=== PATIENT | female | born 1955 | race Caucasian/White ===

== ENCOUNTER 2018-10-25 23:00 | Emergency (ER) | payer MEDICARE ==
[2018-10-25 23:47] LABS: BASOPHILS % (AUTO) 0.5 %; EOSINOPHILS # (AUTO) 0.1 10^3/uL (0.0-0.7); EOSINOPHILS % (AUTO) 0.9 %; HGB - HEMOGLOBIN 12.9 g/dL (12.0-16.0); LYMPHOCYTES # (AUTO) 3.3 10^3/uL (1.5-3.5); LYMPHOCYTES % (AUTO) 38.6 %; MEAN CORPUSCULAR HEMOGLOBIN 31.2 pg (27.0-31.0); MEAN CORPUSCULAR HGB CONC 33.8 g/dL (32.0-36.0); MEAN CORPUSCULAR VOLUME 92.3 fL (81.0-99.0); MEAN PLATELET VOLUME 9.6 fL (7.9-10.8); MONOCYTES # (AUTO) 0.6 10^3/uL (0.0-1.0); NEUTROPHILS # (AUTO) 4.5 10^3/uL (1.5-6.6); NEUTROPHILS % (AUTO) 52.8 %; PLT - PLATELET COUNT 270 10^3/uL (130-450); RED BLOOD COUNT 4.14 10^6/uL (4.20-5.40); RED CELL DISTRIBUTION WIDTH 13.3 % (12.0-15.0); WHITE BLOOD COUNT 8.5 x10^3/uL (4.8-10.8)
[2018-10-26 00:02] LABS: ALBUMIN 4.3 g/dL (3.2-5.5); ALBUMIN/GLOBULIN RATIO 1.3 (1.0-2.2); BILIRUBIN,TOTAL 0.4 mg/dL (0.2-1.0); CALCIUM 9.5 mg/dL (8.5-10.3); CREATININE 0.9 mg/dL (0.4-1.0); TOTAL PROTEIN 7.6 g/dL (6.7-8.2)
--- NOTE | 2018-10-26 00:20 | XRAY Report ---
Reason: chest pain, cough Procedure Date: 10/25/2018 Accession Number: [id number] / [id number] Procedure: XR - Chest 1 View X-Ray CPT Code: 31861 FULL RESULT: EXAM: CHEST RADIOGRAPHY EXAM DATE: 10/25/2018 11:47 PM. CLINICAL HISTORY: Chest pain, cough. COMPARISON: None. TECHNIQUE: 1 view. FINDINGS: Lungs/Pleura: Linear atelectasis or scarring in the left midlung. No focal infiltrate, effusion, or pneumothorax. Mediastinum: Within exam limitations, the cardiomediastinal contour is normal. Other: None. IMPRESSION: Linear atelectasis or scarring in the left midlung. RADIA
--- NOTE | 2018-10-26 01:04 | ED Physician Documentation ---
PD HPI CHEST PAIN - Stated complaint Stated Complaint: CP - Chief complaint Chief Complaint: Cardiac - History obtained from History obtained from: Patient, Family - History of Present Illness Timing - onset: How many months ago (2) Timing - onset during: Light activity Timing - duration: Months (2) Timing - details: Still present, Waxing and waning Quality: Sharp, Pain Location: Left chest Radiation: Abdominal Improved by: Rest Worsened by: Inspiration, Movement, Palpation, Position Associated symptoms: No: Shortness of air, Diaphoresis, Nausea, Vomiting, Feeling faint / dizzy Similar symptoms before: Diagnosis (pneumonia) Recently seen: Not recently seen - Additional information Additional information: 63-year-old female with a history of pseudotumor cerebrii and pneumonia has developed pain in her left chest that is worse with movement or bending over or palpation. She indicates that she is had this pain previously in May of this year when she had pneumonia and she is wondering if she has her pneumonia back again. The pain has been bothering her for about 2 months and she has recently moved from [place] to [facility]. She indicates that the moving truck did most of the work but she and her have been moving things in storage quite a bit. She is feeling a bit fatigued she does not have a cough or fever and she is having some trouble sleeping at night secondary to the pain. She has quite a bit of pain if she coughs or sneezes. Review of Systems Constitutional: reports: Fatigue. denies: Fever, Sweats Eyes: denies: Decreased vision Ears: denies: Ear pain Nose: denies: Rhinorrhea / runny nose, Congestion Throat: denies: Sore throat Cardiac: reports: Chest pain / pressure. denies: Palpitations, Pedal edema, Calf pain Respiratory: denies: Dyspnea, Cough, Wheezing GI: denies: Abdominal Pain, Nausea, Vomiting : denies: Dysuria, Frequency Skin: denies: Rash Musculoskeletal: denies: Neck pain, Back pain, Extremity pain PD PAST MEDICAL HISTORY - Past Medical History Past Medical History: Yes Cardiovascular: High cholesterol, Murmur, Other Respiratory: Pneumonia Other Past Medical History: psuedo tumors - Past Surgical History Past Surgical History: Yes Derm: Skin cancer surgery - Present Medications Home Medications: Ambulatory Orders Medication Instructions Recorded Confirmed Metoprolol Tartrate 25 mg PO DAILY 10/25/18 10/25/18 acetaZOLAMIDE [Acetazolamide] 1 - 2 tab PO DAILY 10/25/18 10/25/18 Hydrocodone/Acetaminophen 1 - 2 each PO Q6H PRN #14 tablet 10/26/18 [Hydrocodon-Acetaminophen 5-325] - Allergies Allergies/Adverse Reactions: Allergies Allergy/AdvReac Type Severity Reaction Status Date / Time Sulfa (Sulfonamide Allergy Hives Verified 10/25/18 23:13 Antibiotics) - Social History Does the pt smoke?: No Smoking Status: Never smoker Does the pt drink ETOH?: No Does the pt have substance abuse?: Yes Substance Use and Type: Marijuana - Immunizations Immunizations are current?: No - POLST Patient has POLST: No PD ED PE NORMAL - Vitals Vital signs reviewed: Yes (hypertensive mild ) - General General: Alert and oriented X 3, No acute distress, Well developed/nourished - HEENT HEENT: Atraumatic, PERRL, EOMI, Ears normal, Moist mucous membranes, Pharynx benign, Dentition benign - Neck Neck: Supple, no meningeal sign, No bony TTP - Cardiac Cardiac: RRR, No murmur - Respiratory Respiratory: No respiratory distress, Clear bilaterally, Other (There is pain to palpation of the chest wall along the left costal margin and the costo-sternal junction. This reproduces the symptoms the patient is having. 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, No motor deficit, No sensory deficit, Normal speech Eye Opening: Spontaneous Motor: Obeys Commands Verbal: Oriented GCS Score: 15 - Psych Psych: Normal mood, Normal affect Results - Vitals Vitals: Vital Signs - 24 hr 10/25/18 10/26/18 23:07 00:31 Temperature 36.4 C L Heart Rate 71 58 L Respiratory 15 16 Rate Blood Pressure 147/74 H 126/68 O2 Saturation 99 94 Oxygen O2 Source Room air - EKG (time done) 1109 Rate: Rate (enter#) (68) Rhythm: NSR QRS: LVH Ischemia: Normal ST segments, Non specific changes (T inversion isolated to III) Compare to prior EKG: Old EKG unavailable Computer interpretation: Agree with computer - Labs Labs: Laboratory Tests 10/25/18 10/25/18 10/25/18 23:40 23:40 23:40 WBC 8.5 RBC 4.14 L Hgb 12.9 Hct 38.2 MCV 92.3 MCH 31.2 H MCHC 33.8 RDW 13.3 Plt Count 270 MPV 9.6 Neut # (Auto) 4.5 Lymph # (Auto) 3.3 [place] # (Auto) 0.6 Eos # (Auto) 0.1 Baso # (Auto) 0.0 Absolute Nucleated RBC 0.00 Nucleated RBC % 0.0 Sodium 141 Potassium 3.7 Chloride 108 Carbon Dioxide 24 Anion Gap 9.0 BUN 23 H Creatinine 0.9 Estimated GFR (MDRD) 63 L Glucose 111 H Calcium 9.5 Total Bilirubin 0.4 AST 18 ALT 14 Alkaline Phosphatase 72 Troponin I High Sens 2.5 Total Protein 7.6 Albumin 4.3 Globulin 3.3 Albumin/Globulin Ratio 1.3 Lipase 57 H - Rads (name of study) chest Radiology: Prelim report reviewed (Patient: Linear atelectasis or scarring in the left midlung.), EMP read indepedently, See rad report Procedures - IVC sono (time) 0056 Bedside IVC sono: IVC measures (cm) (1.27), Dehydration (est <1 liter deficit) PD MEDICAL DECISION MAKING - ED course Complexity details: reviewed results, re-evaluated patient, considered differential, d/w patient, d/w family ED course: 63-year-old female with a prior history of pneumonia and left-sided chest pain has chest wall pain on examination here today and this reproduces the symptoms she is having. She has been moving and I suspect she is irritated a chronically inflamed area. She is administered dexamethasone 10 mg orally and Toradol 60 mg IM. Departure - Departure Disposition: 01 Home, Self Care Clinical Impression: Chest wall pain Condition: Stable Instructions: ED Chest Pain Costochondritis Follow-Up: Gumaro Underwood MD [Physician No Access] - Prescriptions: Hydrocodone/Acetaminophen [Hydrocodon-Acetaminophen 5-325] 1 - 2 each PO Q6H PRN #14 tablet PRN Reason: pain
[2018-10-26] MEDS ORDERED: CHERRY SYRUP 10 ML UDC PO ONE (01:11)
[2018-10-26] MEDS ORDERED: KETOROLAC 60 MG/2 ML VIAL IM STA (01:11)
[2018-10-26] MEDS ORDERED: DEXAMETHASONE 10 MG/ML VIAL PO STA (01:11)
[2018-10-26 01:38] VITALS: BP 117/52
== END 2018-10-26 01:41 | disposition home or self-care (01) ==
LOC: ED 23:00
DX: R07.89 Other chest pain (principal)
CPT/HCPCS: 36415; 71045; 80053; 83690; 84484; 85025; 93005; 96372; 99284; A9270

== ENCOUNTER 2019-05-13 10:19 | Day surgery (SDC) | payer MEDICARE, OTHER ==
[2019-05-13] MEDS ORDERED: ONDANSETRON 4 MG/2 ML VIAL IVP ONE (10:20)
[2019-05-13] MEDS ORDERED: LIDOCAINE-MPF 2% 5 ML VIAL IM ONE (10:20)
[2019-05-13] MEDS ORDERED: DEXAMETHASONE 4 MG/ML VIAL IVP ONE (10:20)
[2019-05-13] MEDS ORDERED: ACETAMINOPHEN 1,000 MG/100 ML 100 ML IV ONE (10:20)
[2019-05-13] MEDS ORDERED: fentaNYL 100 MCG/2 ML VIAL IVP ONE (10:20)
[2019-05-13] MEDS ORDERED: GLYCOPYRROLATE 1 MG/5 ML VIAL IVP ONE (10:20)
[2019-05-13] MEDS ORDERED: KETOROLAC 30 MG/ML VIAL IVP ONE (10:20)
[2019-05-13] MEDS ORDERED: PROPOFOL 200 MG/20 ML VIAL IVP ONE (10:20)
[2019-05-13] MEDS ORDERED: LACTATED RINGERS 1,000 ML IV ONE (10:27)
--- NOTE | 2019-05-13 11:14 | ANESTHESIA ---
Pre-Anesthesia VS, & Labs - Diagnosis left breast cancer - Procedure left breast lumpectomy Vital Signs: Temp Pulse Resp BP Pulse Ox 36.6 C 81 16 149/75 H 81 L 05/13/19 10:27 05/13/19 10:27 05/13/19 10:27 05/13/19 10:27 05/13/19 10:27 Height 5 ft 4 in Weight (kg) 79 kg Body Mass Index 29.2 - Is Patient ?: No Home Medications and Allergies Home Medications: Ambulatory Orders Atorvastatin [Lipitor] 10 mg PO DAILY 05/09/19 Bacillus Coagulans/Inulin [Probiotic with Prebiotic Cap] 2 each PO DAILY 05/09/19 Biotin 2,500 mcg PO DAILY 05/09/19 Clopidogrel [Plavix] 75 mg PO DAILY 05/09/19 Dicyclomine HCl 20 mg PO TID 05/09/19 Elderberry Fruit and Flower [Black Elderberry 575 mg Cap] 1 each PO DAILY 05/09/19 Inulin/Cholecalciferol (D3) [Fiber Gummies-Vitamin D3] 2 each PO DAILY 05/09/19 Lysine HCl [l-Lysine] 1,000 mg PO DAILY 05/09/19 Metoprolol Succinate 25 mg PO DAILY 05/09/19 Omeprazole 20 mg PO BID 05/09/19 Active Medications Cefazolin Sodium 3 gm/ Sodium (Chloride) 100 mls @ 200 mls/hr IV ONCE AZUL Stop: 05/13/19 17:00 acetaZOLAMIDE [Acetazolamide] 250 mg PO BID 10/25/18 Atorvastatin [Lipitor] 10 mg PO DAILY 05/09/19 Bacillus Coagulans/Inulin [Probiotic with Prebiotic Cap] 2 each PO DAILY 05/09/19 Biotin 2,500 mcg PO DAILY 05/09/19 Clopidogrel [Plavix] 75 mg PO DAILY 05/09/19 Dicyclomine HCl 20 mg PO TID 05/09/19 Elderberry Fruit and Flower [Black Elderberry 575 mg Cap] 1 each PO DAILY 05/09/19 Inulin/Cholecalciferol (D3) [Fiber Gummies-Vitamin D3] 2 each PO DAILY 05/09/19 Lysine HCl [l-Lysine] 1,000 mg PO DAILY 05/09/19 Metoprolol Succinate 25 mg PO DAILY 05/09/19 Omeprazole 20 mg PO BID 05/09/19 Allergies/Adverse Reactions: Allergies Allergy/AdvReac Type Severity Reaction Status Date / Time levofloxacin Allergy Hallucinati Verified 05/13/19 10:48 ons Sulfa (Sulfonamide Allergy Hives Verified 05/13/19 10:48 Antibiotics) Anes History & Medical History - Anesthetic History Anesthesia Complications: reports: No previous complications Family history of Anesthesia Complications: Denies Family history of Malignant Hyperthermia: Denies - Medical History Cardiovascular: reports: High cholesterol, Murmur, Arrhythmia, Other (saw assistant merchandiser this last sunday and he has told her she is good for hte surgery. She has been having chest pain for a while,. but he assistant merchandiser has told her that it is not heart related. She has had a stress test done in [facility]. She was put on plavix by her assistant merchandiser in January 2019. 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 She rpeorts that She started having chest pains after the episode of pneumonia. She has had epidosed of V tach and she has been on metoprolol for that.) Gastrointestinal: reports: Ulcers, Other Urinary: reports: None Neuro: reports: Other (pseudotumors diagnosed in 2010. She is taking Dimox.) Musculoskeletal: reports: None Endocrine/Autoimmune: reports: None Blood Disorders: reports: None (stopped taking plaix about a week ago.) Skin: reports: Other Smoking Status: Never smoker Psychosocial: reports: Depression, Anxiety - Surgical History General: Colonoscopy, EGD Orthopedic: Other Dermatologic: Skin cancer surgery Results - EKG Results EKG Comparison: Other (looked at previous ekg from 10/25/2018 and obtained one today. New EKG does show a peaked T wave in V2.) Exam General: Alert, Oriented x3, Cooperative, No acute distress Dental: WNL Mouth Openin Fingerbreadth Neck Mobility: Normal Mallampati classification: II Thyromental Distance: 4-6 cm Respiratory: Lungs clear, Normal breath sounds, No respiratory distress, No accessory muscle use Cardiovascular: Regular rate, Normal S1, Normal S2, No murmurs Abdomen: Normal bowel sounds, Soft, No tenderness, No hepatospenomegaly, No masses Extremities: No clubbing, No cyanosis, No edema, Normal pulses, No tenderness/swelling Neurological: Normal gait, Normal speech, Strength at 5/5 X4 ext, Normal tone, Sensation intact, Cranial nerves 3-12 NL, Reflexes 2+ Mental/Cognitive Status: Alert/Oriented X3, Normal for patient Cognitive Status: Within normal limits Plan Anesthesia Type: General Consent for Procedure(s) Verified and Reviewed: Yes Code Status: Attempt Resuscitation ASA classification: 3-Severe systemic disease Is this case an emergency?: No
[2019-05-13] MEDS ORDERED: BUFFERED LIDOCAINE 10 ML SYRINGE ONE (11:23)
[2019-05-13] MEDS ORDERED: BUFFERED LIDOCAINE 10 ML SYRINGE IU ONE (13:22)
[2019-05-13] MEDS ORDERED: ceFAZolin 3 GM in SODIUM CHLORIDE 0.9% 100ML 100 ML IV SCH (13:30)
[2019-05-13] MEDS ORDERED: LIDOCAINE 1%-EPI 1:100000 20 ML MDV ONE (15:31)
[2019-05-13] MEDS ORDERED: BUPIVACAINE 0.5% PF 30 ML VIAL ONE (15:31)
[2019-05-13] MEDS ORDERED: METHYLENE BLUE 0.5% 50 MG/10 ML AMPULE ONE (15:31)
--- NOTE | 2019-05-13 16:37 | Nuclear Medicine Report ---
Reason: BREAST CA Procedure Date: 05/13/2019 Accession Number: [id number] / [id number] Procedure: NM - Lymph Node Scintigraphy CPT Code: Final Report FULL RESULT: EXAM: SENTINEL LYMPH NODE RADIOTRACER INJECTION WITH IMAGING EXAM DATE: 05/13/2019 03:36 PM. CLINICAL HISTORY: Left BREAST CA. COMPARISON: None. TECHNIQUE: The injection site of the left breast was cleansed according to protocol. Next, a total of 0.52 mCi Tc-99m filtered sulfur colloid in 1 cc saline was injected into the same site. After appropriate delay, the patient was imaged according to the protocol. FINDINGS: A sentinel lymph node is not identified. The patient tolerated the procedure well. IMPRESSION: 1. Hutchinson lymph node injection left breast. RADIA
[2019-05-13] MEDS ORDERED: LIDOCAINE 1%-EPI 1:100000 30 ML MDV SUBQ ONE ×2 (16:48)
[2019-05-13] MEDS ORDERED: BUPIVACAINE 0.5% PF 30 ML VIAL SUBQ ONE ×2 (16:48)
--- NOTE | 2019-05-13 16:50 | Mammography Report ---
Reason: PRE OP FOR LEFT BREAST LUMPECTOMY Procedure Date: 05/13/2019 Accession Number: [id number] / [id number] Procedure: MÓNICA - Wire Localization LT CPT Code: 26343 Final Report FULL RESULT: EXAM: Wire Localization LT, Breast Specimen Surgical DATE: 05/13/2019 12:42 PM CLINICAL HISTORY: PRE OP FOR LEFT BREAST LUMPECTOMY COMPARISON: EXAM: Wire Localization LT, Breast Specimen Surgical DATE: 05/13/2019 12:42 PM CLINICAL HISTORY: Left breast cancer COMPARISON: 04/03/2019 and 03/14/2019 FINDINGS: TARGET: Biopsy clip left lateral breast. APPROACH: Lateral to medial. LOCALIZATION WIRE: 5 cm modified Kopans TECHNIQUE: Informed consent is obtained from the patient. Using sterile technique and Lidocaine 1% for local anesthesia, the localization wire is placed adjacent to the target. Post procedure images show appropriate wire to target positioning. Patient tolerated the procedure well. SPECIMEN RADIOGRAPH: The localization wire and biopsy clip are contained within the specimen radiograph IMPRESSION: Successful mammographically guided wire localization left breast.
--- NOTE | 2019-05-13 16:50 | Mammography Report ---
Reason: S/P LEFT BREAST LUMPECTOMY Procedure Date: 05/13/2019 Accession Number: [id number] / [id number] Procedure: MÓNICA - Breast Specimen Surgical CPT Code: Final Report FULL RESULT: EXAM: Wire Localization LT, Breast Specimen Surgical DATE: 05/13/2019 12:42 PM CLINICAL HISTORY: PRE OP FOR LEFT BREAST LUMPECTOMY COMPARISON: EXAM: Wire Localization LT, Breast Specimen Surgical DATE: 05/13/2019 12:42 PM CLINICAL HISTORY: Left breast cancer COMPARISON: 04/03/2019 and 03/14/2019 FINDINGS: TARGET: Biopsy clip left lateral breast. APPROACH: Lateral to medial. LOCALIZATION WIRE: 5 cm modified Kopans TECHNIQUE: Informed consent is obtained from the patient. Using sterile technique and Lidocaine 1% for local anesthesia, the localization wire is placed adjacent to the target. Post procedure images show appropriate wire to target positioning. Patient tolerated the procedure well. SPECIMEN RADIOGRAPH: The localization wire and biopsy clip are contained within the specimen radiograph IMPRESSION: Successful mammographically guided wire localization left breast.
[2019-05-13] MEDS ORDERED: METHYLENE BLUE 0.5% 50 MG/10 ML AMPULE IR ONE (16:51)
[2019-05-13] MEDS ORDERED: oxyCODONE 5 MG TABLET PO PRN (17:02)
[2019-05-13] MEDS ORDERED: ACETAMINOPHEN 325 MG TABLET PO PRN (17:02)
[2019-05-13] MEDS ORDERED: IBUPROFEN 600 MG TABLET PO PRN (17:02)
[2019-05-13] MEDS ORDERED: ONDANSETRON 4 MG/2 ML VIAL IVP PRN (17:02)
--- NOTE | 2019-05-13 17:15 | OPERATIVE REPORT ---
Operative Report - General Procedure Date: 05/13/19 Planned Procedure: Left breast lumpectomy and sentinel node biopsy after needle localization and mapping. Pre-Op Diagnosis: Biopsy proven left breast cancer Procedure Performed: Left breast lumpectomy and sentinel node dissection after needle localization and mapping. Post Op Diagnosis: Biopsy proven left breast cancer - Procedure Note Primary Surgeon: Mario Secondary Surgeon: Sanjiv Anesthesia Provider: CYNDIE Sandhu Anesthesia Technique: General LMA, Local Pathology: 1. Left breast mass to pathology 2. Left axillary palpable, non-sentinel node to pathology Estimated Blood Loss (mL): 20 Findings: No sentinel identified in the left axilla with either nuclear medicine mapping or mapping with Methylene blue Neoprobe survey revealed mapping to the internal mammary chain on the left side with up in this area of 50 and in the axilla of 0 Complications: None apparent - Other Other Information/Narrative: After obtaining informed consent, the patient is brought to the operating room and placed in the supine position on the operating table. Following successful induction of general endotracheal anesthesia, appropriate padding of all bony prominences, and placement appropriate monitors, the left chest and axilla were prepped and draped in the standard surgical fashion. A timeout was held per s cope protocol. All elements of the surgical safety checklist were followed before, during, and after the procedure. The patient had been seen previously in nuclear medicine for sentinel node mapping. It was noted at that time that she did not have any sentinel node identified in the left axilla. I was somewhat concerned that the injection was deep and missed the dermal lymphatics. For this reason I elected to perform injection with methylene blue and try once again to map sentinel nodes in the left axilla. 3 mL of methylene blue were injected in the subcutaneous tissue and the nipple areolar complex. The left breast was then massaged for 5 minutes.After this, an incision was created in the left axilla. This site was chosen because we could palpate a single left axillary node here. The axillary node packet was identified as well as the palpable node. It was not blue in color. This node was addressed with hemoclips proximally and distally and liberated from the surrounding tissue. An extensive search was undertaken in the axilla at levels 1 2 and 3 for any evidence of blue dye. No blue was appreciated whatsoever. At this point the axilla was irrigated with warm water and closed in 2 layers with Vicryl and Monocryl suture. We continued with the lumpectomy in the lateral aspect of the left breast and incision was created around the wire to include the wire and the mass. The mass was then dissected free from the surrounding tissue sharply. It was delivered into the field and marked for orientation. It was submitted to radiology. The radiologist called into the room reporting that the lesion, clip, and wire were all located in the specimen. At this point the wound was irrigated with warm water and aspirated free of all fluid and particulate matter. It was closed in 2 layers with Vicryl and Monocryl suture. Once the Dermabond had been applied to the skin, I chose to try to map the patient's lymphatic system using the neoprobe only beginning in the axilla the neoprobe was used to survey all of the tissue and the lymph node packets including the axilla the supraclavicular macular region the cervical region and the internal mammary region. Counts of 50-60 were obtained over the internal mammary nodes with 0 obtained in the axilla.This was a transthoracic reading without an incision.At this time the procedure was concluded.All sponge, needle, and instrument counts were correct at the conclusion of the case. The patient was allowed awaken from anesthesia without difficulty and taken to the postanesthesia care unit in good condition.
[2019-05-13] MEDS ORDERED: oxyCODONE 5 MG TABLET ONE (17:56)
[2019-05-13 18:10] VITALS: BP 132/85
== END 2019-05-13 10:20 | disposition home or self-care (01) ==
LOC: DI 10:19
PROVIDERS: ATTEND Surgery
PROC: 0HBU0ZZ Excision of Left Breast, Open Approach (ICD-10-PCS; principal; 2019-05-13 14:30)
PROC: 07B60ZX Excision of Left Axillary Lymphatic, Open Approach, Diagnostic (ICD-10-PCS; 2019-05-13 14:30)
DX: C50.912 Malignant neoplasm of unspecified site of left female breast (principal); Z17.0 Estrogen receptor positive status [ER+]; I49.9 Cardiac arrhythmia, unspecified; R01.1 Cardiac murmur, unspecified; F41.9 Anxiety disorder, unspecified; R07.9 Chest pain, unspecified; E78.00 Pure hypercholesterolemia, unspecified
CPT/HCPCS: 19281; 19301; 38500; 38900; 76098; 78195; 93005; A9270; J0131; J7120

== ENCOUNTER 2020-03-17 10:29 | Outpatient (CLI) | payer MEDICARE, OTHER ==
--- NOTE | 2020-03-18 11:25 | Mammography Report ---
BILATERAL DIGITAL DIAGNOSTIC MAMMOGRAM 3D/2D: 03/17/2020 CLINICAL: Routine screening. Personal history of left breast cancer. Comparison is made to exams dated: 04/03/2019 mammogram, 04/03/2019 ultrasound biopsy, 03/14/2019 ultraso und, 03/14/2019 mammogram, 02/25/2019 mammogram - [facility], and 12/25/2012 mammogram - [facility]. There are scattered fibroglandular elements in both breasts. The patient is status post partial mastectomy left breast in the upper outer quadrant. No significant masses, calcifications, or other findings are seen in either breast. IMPRESSION: BENIGN There is no mammographic evidence of malignancy. Return to annual mammogram screening schedule is recommended. Recommend continued clinical surveillance and follow up. Findings and recommendations were conveyed to the patient during today's evaluation. This exam was interpreted at Station ID: [id number]. NOTE: For mammograms, a report in lay terms will be sent to the patient. Approximately 15% of breast malignancies will not be visualized mammographically. In the management of a palpable breast mass, a negative mammogram must not discourage biopsy of a clinically suspicious lesion. Electronically Signed By: Herson Starr M.D. aty/:03/17/2020 11:34:12 ACR BI-RADS Category 2: Benign Finding(s) 3342F PARENCHYMAL PATTERN: (A) - The breast(s) demonstrate(s) scattered fibroglandular densities. BI-RADS CATEGORY: (2) - 2 Mammogram [id number] return to screening LATERALITY: (B)
== END 2020-03-17 10:30 | disposition home or self-care (01) ==
LOC: DI 10:29
PROVIDERS: ATTEND Surgery
DX: C50.412 Malignant neoplasm of upper-outer quadrant of left female breast (principal); Z85.3 Personal history of malignant neoplasm of breast

== ENCOUNTER 2020-11-10 09:10 | Outpatient (CLI) | payer MEDICARE, OTHER ==
[2020-11-10 11:40] LABS: ALBUMIN 4.1 g/dL (3.2-5.5); ALBUMIN/GLOBULIN RATIO 1.3 (1.0-2.2); ALKALINE PHOSPHATASE 41 IU/L (42-121); ALT ALANINE AMINOTRANSFERASE 20 IU/L (10-60); AST ASPARTATE AMINOTRANSFERASE 22 IU/L (10-42); BILIRUBIN,TOTAL 0.7 mg/dL (0.2-1.0); BUN - BLOOD UREA NITROGEN 18 mg/dL (6-20); CALCIUM 9.1 mg/dL (8.5-10.3); CARBON DIOXIDE - CO2 29 mmol/L (21-32); CHLORIDE 104 mmol/L (101-111); CHOL/HDL RATIO 2.5 (<4.4); CHOLESTEROL 172 mg/dL; CREATININE 0.9 mg/dL (0.4-1.0); GFR - MDRD 62 (>89); GLUCOSE 92 mg/dL (70-100); HDL CHOLESTEROL 68 mg/dL; LDL CHOLESTEROL,CALCULATED 84 mg/dL; LDL/HDL RATIO 1.2 (<4.4); POTASSIUM 4.1 mmol/L (3.5-5.0); SODIUM 140 mmol/L (135-145); TOTAL PROTEIN 7.2 g/dL (6.7-8.2); TRIGLYCERIDES 101 mg/dL; VLDL CHOLESTEROL 20 mg/dL
== END 2020-11-10 09:11 | disposition home or self-care (01) ==
LOC: LAB.N 09:10
PROVIDERS: ATTEND Internal Medicine Cardiovascular Disease
DX: I25.10 Atherosclerotic heart disease of native coronary artery without angina pectoris (principal)
CPT/HCPCS: 36415; 80053; 80061; 83721

== ENCOUNTER 2020-12-20 12:30 | Outpatient (CLI) | payer MEDICARE, OTHER ==
--- NOTE | 2020-12-21 08:02 | Mammography Report ---
UNILATERAL LEFT DIGITAL DIAGNOSTIC MAMMOGRAM 3D/2D: 12/20/2020 CLINICAL: Short term follow up for the left breast. Comparison is made to exams dated: 03/17/2020 mammogram, 05/13/2019 localization - [facility], 05/12/2019 breast MRI, 04/03/2019 mammogram, 04/03/2019 ultrasound biopsy, and 03/14/2019 [facility] [place]. There are scattered fibroglandular elements in left breast. There are a benign lumpectomy cavity and scar marker in the left breast at 3 o'clock that are not sig nificantly changed. No significant masses, calcifications, or other findings are seen in the breast. IMPRESSION: BENIGN There is no mammographic evidence of malignancy. Return to annual mammogram screening schedule is rec ommended. Future imaging is recommended as follows: 03/18/2021 screening mammogram. Findings and re commendations were conveyed to the patient at time of exam. This exam was interpreted at Station ID: [id number]. NOTE: For mammograms, a report in lay terms will be sent to the patient. Approximately 15% of breast malignancies will not be visualized mammographically. In the management of a palpable breast mass, a negative mammogram must not discourage biopsy of a clinically suspicious lesion. Electronically Signed By: Alivia reaves/:12/20/2020 13:23:59 ACR BI-RADS Category 2: Benign Finding(s) 3342F PARENCHYMAL PATTERN: (A) - The breast(s) demonstrate(s) scattered fibroglandular densities. BI-RADS CATEGORY: (2) - 2 Mammogram [id number] return to screening LATERALITY: (B)
== END 2020-12-20 12:31 | disposition home or self-care (01) ==
LOC: DI 12:30
PROVIDERS: ATTEND Surgery
DX: C50.412 Malignant neoplasm of upper-outer quadrant of left female breast (principal)

== ENCOUNTER 2021-07-22 08:00 | Outpatient (CLI) | payer MEDICARE, OTHER ==
--- NOTE | 2021-07-22 13:32 | XRAY Report ---
PROCEDURE: Foot 3 View LT INDICATIONS: SPRAIN OF LEFT FOOT TECHNIQUE: 3 views of the foot were acquired. COMPARISON: None large plantar and small dorsal calcaneal bone spurs. FINDINGS: Bones: No fracture of the fifth middle phalange which is healed nonunion. Flattened third metatarsal head concerning for sequela of chronic osteonecrosis. No acute fractures or dislocations. No suspici ous bony lesions. Soft tissues: No tibiotalar joint effusion. Achilles tendon appears normal. IMPRESSION: No acute fracture. No acute osseous lesion. If symptoms and/or clinical concern for pathology persist s, further assessment with repeat plain film radiographs (7-10 days) or advanced imaging (CT, MR, bon e scan) should be considered. Reviewed by: Luz Elena Montelongo MD, PhD on 07/22/2021 1:31 PM PDT Approved by: Luz Elena Montelongo MD, PhD on 07/22/2021 1:31 PM PDT Station ID: [id number]
== END 2021-07-22 23:59 | disposition home or self-care (01) ==
LOC: DI.N 08:00
PROVIDERS: ATTEND Emergency Medicine
DX: S93.602A Unspecified sprain of left foot, initial encounter (principal)

== ENCOUNTER 2021-12-15 09:45 | Outpatient (CLI) | payer MEDICARE, OTHER | END 2021-12-15 09:46 | disposition home or self-care (01) | LOC: RT 09:45 | PROVIDERS: ATTEND Obstetrics & Gynecology Gynecologic Oncology | DX: Z01.810 Encounter for preprocedural cardiovascular examination (principal) | CPT/HCPCS: 93005 ==

== ENCOUNTER 2023-08-28 07:30 | Day surgery (SDC) | payer MEDICARE, OTHER ==
[2023-08-28] MEDS: LACTATED RINGERS 1,000 ML IV ONE (07:35)
[2023-08-28] MEDS ORDERED: BUPIVACAINE 0.5% PF 10 ML VIAL ONE (07:41)
[2023-08-28] MEDS ORDERED: LIDOCAINE 1%-EPI 1:100000 20 ML MDV ONE (07:41)
[2023-08-28] MEDS ORDERED: SILVER NITRATE APPLICATOR TOP ONE (07:41)
[2023-08-28] MEDS ORDERED: PROPOFOL 200 MG/20 ML VIAL IVP ONE ×2 (07:56→08:27)
[2023-08-28] MEDS ORDERED: LIDOCAINE-PF 2% 10 ML AMP SUBQ ONE ×2 (07:56→08:26)
--- NOTE | 2023-08-28 08:14 | HISTORY & PHYSICAL EXAMINATION ---
HPI - History of Present Illness HPI Comment/Other: HPI: Patient is a 68-year-old postmenopausal presenting today for hysteroscopy, dilation curettage for postmenopausal bleeding and thickened endometrium. She had a an ultrasound in March measuring 2.9 cm for an endometrial echo. She is taking clopidogrel for history of blood clots. She stopped this 1 week ago after consultation with her other providers. All other symptoms reviewed and were negative except per HPI. PMH Irregular heartbeat High cholesterol shortness of breath frequent indigestion stomach ulcer prednisone use left breast invasive ductal carcinoma Anxiety Depression panic attacks claustrophobia DVT Pseudotumor cerebri Restless leg syndrome PSH D&C x2 breast biopsy (2019) Lumpectomy (2019) cataracts (2020) Cholecystectomy (2021) SH Denies tobacco, alcohol, drugs Family History Family History of Other Cancer for Mother Family History of Other Cancer for Father, skin ca, heart bypass Family History of Heart Disease for Brother Family History of Diabetes for Brother Family History of Heart Disease for Sister Family History of Diabetes for Sister Family History of Breast Cancer for Paternal Grandmother Allergies Levaquin Sulfa Medications Clopidogrel 75 mg: Held Metoprolol 25 mg XR daily Tamoxifen 20 mg daily: Held Rosuvastatin 5 mg Multivitamin Calcium Coq.10 Vitamin D3 Fish oil Potassium gluconate Physical exam: General: Alert, oriented, no acute distress Head: Normal cephalic atraumatic Eyes: PERRLA, extraocular motions intact. Respiratory: Normal rate of respiration. No accessory muscle use, normal respiratory effort. Cardiovascular: Regular rate and rhythm Abdomen: Nontender, nondistended Extremities: Normal range of motion Neuro: Oriented x3. Normal movements Psych: Appropriate mood and affect. Normal judgment and insight Assessment and plan Postmenopausal bleeding -Discussed the risk, benefits and alternatives of hysteroscopy, D&C. Patient agrees and would like to proceed with procedure. No changes in her history since our last visit. PMH/PSH - Past Medical History Cardiovascular: positive: High cholesterol, Murmur, Arrhythmia, Other Respiratory: positive: Pneumonia Neuro: positive: Other (pseudotumors diagnosed in 2010. She is taking Dimox.) Endocrine/Autoimmune: positive: None GI: positive: Hemorrhoids, Other : positive: None HEENT: positive: Chronic hearing loss Psych: positive: Depression, Anxiety, Panic attacks, Claustrophobia Musculoskeletal: positive: None Derm: positive: Other MRSA Hx?: No - Past Surgical History General: positive: Cholecystectomy, Colonoscopy, EGD Ortho: positive: Other /[employer]: positive: Other HEENT: positive: Cataracts Derm: positive: Skin cancer surgery Social & Family Hx - Social History Does the pt smoke?: No Smoking Status: Never smoker Does the pt drink ETOH?: No Does the pt have substance abuse?: Yes Substance Use and Type: CBD oil / Products - POLST Patient has POLST: No Meds/Allgy - Home Medications Home Medications: Ambulatory Orders Medication Instructions Recorded Confirmed Clopidogrel [Plavix] 75 mg PO DAILY 05/09/19 08/20/23 Metoprolol Succinate 25 mg PO DAILY 05/09/19 08/20/23 Calcium Carbonate [Calcium] 1,200 mg PO DAILY 08/20/23 08/20/23 Cholecalciferol [Vitamin D3] 50 mcg PO DAILY 08/20/23 08/20/23 Multivitamin 1 each PO DAILY 08/20/23 08/20/23 [place]-3S/Dha/Epa/Fish Oil [Fish 1 each PO DAILY 08/20/23 08/20/23 Oil 1,200 mg Softgel] Potassium Gluconate 2 tab PO DAILY 08/20/23 08/20/23 Psyllium [Metamucil] 1 each PO DAILY 08/20/23 08/20/23 Rosuvastatin Calcium 5 mg PO DAILY 08/20/23 08/20/23 Tamoxifen [Nolvadex] 20 mg PO DAILY 08/20/23 08/20/23 Temazepam [Restoril] 15 mg PO HS PRN 08/20/23 08/20/23 Ubidecarenone/Vit E Acet [Co Q-10 1 each PO DAILY 08/20/23 08/20/23 100 mg Softgel] polyethylene glycoL 3350 [Miralax] 17 gm PO DAILY 08/20/23 08/20/23 - Allergies Allergies/Adverse Reactions: Allergies Allergy/AdvReac Type Severity Reaction Status Date / Time levofloxacin Allergy Hallucinati Verified 08/28/23 06:19 ons Sulfa (Sulfonamide Allergy Hives Verified 08/28/23 06:19 Antibiotics) Exam - Vital Signs Vital Signs: Vital Signs x48h Temp Pulse Resp BP Pulse Ox 08/28/23 07:46 97.2 F L 78 14 168/81 H 98
[2023-08-28 08:17] LABS: BASOPHILS % (AUTO) 0.4 %; EOSINOPHILS # (AUTO) 0.1 10^3/uL (0.0-0.7); EOSINOPHILS % (AUTO) 1.3 %; HCT - HEMATOCRIT 39.5 % (37.0-47.0); LYMPHOCYTES # (AUTO) 2.5 10^3/uL (1.5-3.5); LYMPHOCYTES % (AUTO) 30.4 %; MEAN CORPUSCULAR HEMOGLOBIN 31.3 pg (27.0-31.0); MEAN CORPUSCULAR HGB CONC 32.9 g/dL (32.0-36.0); MEAN PLATELET VOLUME 9.7 fL (7.9-10.8); MONOCYTES # (AUTO) 0.7 10^3/uL (0.0-1.0); MONOCYTES % (AUTO) 7.8 %; PLT - PLATELET COUNT 284 10^3/uL (130-450); RED BLOOD COUNT 4.16 10^6/uL (4.20-5.40); RED CELL DISTRIBUTION WIDTH 13.2 % (12.0-15.0); WHITE BLOOD COUNT 8.4 x10^3/uL (4.8-10.8)
--- NOTE | 2023-08-28 08:21 | ANESTHESIA ---
Pre-Anesthesia VS, & Labs - Diagnosis POSTMENOPAUSAL BLEEDING - Procedure MYOSURE HYSTEROSCOPY D&C Vital Signs: Temp Pulse Resp BP Pulse Ox O2 Flow Rate 36.2 C L 78 14 168/81 H 98 08/28/23 07:46 08/28/23 07:46 08/28/23 07:46 08/28/23 07:46 08/28/23 07:46 Height: 5 ft 4 in Weight (kg): 76.1 kg Body Mass Index: 28.8 BMI Classification: Overweight - NPO >8 hours - Is Patient ?: No Home Medications and Allergies Home Medications: Ambulatory Orders Calcium Carbonate [Calcium] 1,200 mg PO DAILY 08/20/23 Cholecalciferol [Vitamin D3] 50 mcg PO DAILY 08/20/23 Multivitamin 1 each PO DAILY 08/20/23 [place]-3S/Dha/Epa/Fish Oil [Fish Oil 1,200 mg Softgel] 1 each PO DAILY 08/20/23 Potassium Gluconate 2 tab PO DAILY 08/20/23 Psyllium [Metamucil] 1 each PO DAILY 08/20/23 Rosuvastatin Calcium 5 mg PO HS 08/20/23 Tamoxifen [Nolvadex] 20 mg PO DAILY 08/20/23 Temazepam [Restoril] 15 mg PO HS PRN 08/20/23 Ubidecarenone/Vit E Acet [Co Q-10 100 mg Softgel] 1 each PO DAILY 08/20/23 polyethylene glycoL 3350 [Miralax] 17 gm PO DAILY 08/20/23 Clopidogrel [Plavix] 75 mg PO DAILY 05/09/19 Metoprolol Succinate 25 mg PO HS 05/09/19 Calcium Carbonate [Calcium] 1,200 mg PO DAILY 08/20/23 Cholecalciferol [Vitamin D3] 50 mcg PO DAILY 08/20/23 Multivitamin 1 each PO DAILY 08/20/23 [place]-3S/Dha/Epa/Fish Oil [Fish Oil 1,200 mg Softgel] 1 each PO DAILY 08/20/23 Potassium Gluconate 2 tab PO DAILY 08/20/23 Psyllium [Metamucil] 1 each PO DAILY 08/20/23 Rosuvastatin Calcium 5 mg PO HS 08/20/23 Tamoxifen [Nolvadex] 20 mg PO DAILY 08/20/23 Temazepam [Restoril] 15 mg PO HS PRN 08/20/23 Ubidecarenone/Vit E Acet [Co Q-10 100 mg Softgel] 1 each PO DAILY 08/20/23 polyethylene glycoL 3350 [Miralax] 17 gm PO DAILY 08/20/23 Allergies/Adverse Reactions: Allergies Allergy/AdvReac Type Severity Reaction Status Date / Time levofloxacin Allergy Hallucinati Verified 08/28/23 06:19 ons Sulfa (Sulfonamide Allergy Hives Verified 08/28/23 06:19 Antibiotics) Anes History & Medical History - Anesthetic History Anesthesia Complications: reports: No previous complications Family history of Anesthesia Complications: Denies Family history of Malignant Hyperthermia: Denies - Medical History Cardiovascular: reports: High cholesterol, Murmur, Arrhythmia, Other Pulmonary: reports: Pneumonia Gastrointestinal: reports: Hemorrhoids, Other Urinary: reports: None Neuro: reports: Other (pseudotumors diagnosed in 2010. She is taking Dimox.) Musculoskeletal: reports: None Endocrine/Autoimmune: reports: None Blood Disorders: reports: None (stopped taking plaix about a week ago.) Skin: reports: None, Other Smoking Status: Never smoker Psychosocial: reports: No issues indicated History of Cancer?: No - Surgical History General: reports: Cholecystectomy, Colonoscopy, EGD Eyes Ears Nose Throat (EENT): reports: Cataracts Gynecologic: reports: Other Orthopedic: reports: Other Dermatologic: reports: Skin cancer surgery Results - EKG Results EKG Comparison: Reviewed EKG, Normal EKG Exam General: Alert, Oriented x3, Cooperative, No acute distress Dental: WNL Mouth Openin Fingerbreadth Neck Mobility: Normal Mallampati classification: I Thyromental Distance: 4-6 cm Respiratory: Lungs clear, Normal breath sounds, No respiratory distress, No accessory muscle use Cardiovascular: Regular rate, Normal S1, Normal S2, No murmurs Mental/Cognitive Status: Alert/Oriented X3, Normal for patient Cognitive Status: Within normal limits Plan Anesthesia Type: General Consent for Procedure(s) Verified and Reviewed: Yes Code Status: Attempt Resuscitation ASA classification: 3-Severe systemic disease Is this case an emergency?: No
[2023-08-28] MEDS ORDERED: fentaNYL 100 MCG/2 ML VIAL ONE (08:26)
[2023-08-28] MEDS ORDERED: PROPOFOL 500 MG/50 ML 500 MG/50 ML VIAL ONE (08:26)
[2023-08-28] MEDS ORDERED: ONDANSETRON 4 MG/2 ML VIAL ONE (08:29)
[2023-08-28] MEDS ORDERED: DEXAMETHASONE 10 MG/ML VIAL ONE (08:29)
[2023-08-28] MEDS ORDERED: ePHEDrine 50 MG/ML VIAL IVP ONE (08:56)
[2023-08-28] MEDS: LACTATED RINGERS 500 ML IV ONE (09:24)
[2023-08-28] MEDS ORDERED: HYDROcod/ACETAM 5/325 MG TABLET PO PRN (09:27)
[2023-08-28] MEDS ORDERED: ONDANSETRON 4 MG/2 ML VIAL IVP PRN (09:30)
[2023-08-28] MEDS ORDERED: ePHEDrine 50 MG/ML VIAL IVP PRN (09:30)
[2023-08-28] MEDS ORDERED: HYDROmorphone 0.5 MG/0.5 ML SYRINGE IVP PRN (09:30)
[2023-08-28] MEDS ORDERED: ACETAMINOPHEN 1,000 MG/100 ML 1,000 MG/100 ML BAG IV ONE (09:30)
[2023-08-28] MEDS ORDERED: fentaNYL 100 MCG/2 ML VIAL IVP PRN (09:30)
[2023-08-28] MEDS ORDERED: NALOXONE 0.4 MG/ML VIAL IVP PRN (09:30)
[2023-08-28] MEDS ORDERED: MORPHINE 2 MG/ML CARPUJECT IVP PRN (09:30)
[2023-08-28] MEDS ORDERED: ATROPINE ABBOJECT 1 MG/10 ML SYRINGE IVP PRN (09:30)
--- NOTE | 2023-08-28 09:32 | OPERATIVE REPORT ---
Operative Report - General Procedure Date: 08/28/23 Planned Procedure: Hysteroscopy, dilation and curettage Pre-Op Diagnosis: Postmenopausal bleeding, tamoxifen therapy Procedure Performed: Hysteroscopy, dilation and curettage Post Op Diagnosis: Postmenopausal bleeding, tamoxifen therapy - Procedure Note Primary Surgeon: Davie CISSE Anesthesia Provider: Dilip Bhakta CRNA Pathology: Endometrial curettings IV Fluids (mL): 500 Estimated Blood Loss (mL): 5 Urine Output (mL): 20 Findings: Nonstenotic cervix. Atrophic endometrium. 2 small polyps - Other Other Information/Narrative: After confirming consent to the procedure, the patient was taken to the operating room and placed in dorsolithotomy position. She was prepped and draped in sterile fashion. After timeout, sterile speculum is placed in the vagina. After good visualization of the cervix, the anterior lip of the cervix was grasped with a single-tooth tenaculum. 6 mL of local anesthesia used placed a cervical block. The cervix was then easily dilated with Hegar dilators to 8 cm. The hysteroscope was then initiated and advanced through the cervical os, allowing hydrodistention. Upon entering the endometrium, she had atrophic appearing endometrium with 2 small polyps. There were some small adhesions in the fundal portion of the uterus. Using a Villalobos sure device, the polyps were resected and some lesions were removed. The hysteroscope was then removed. Using a sharp curette, a general curettage was performed to collect and the contents on a Telfa. After examining, the patient was hemostatic. The tenaculum was removed and tenaculum sites were hemostatic. Counts were correct. Patient tolerated procedure well and was taken the PACU in good condition.
[2023-08-28] MEDS: LIDOCAINE 1%-EPI 1:100000 20 ML MDV SUBQ ONE (09:38)
[2023-08-28] MEDS: BUPIVACAINE 0.5% PF 10 ML VIAL IM ONE (09:39)
[2023-08-28] MEDS ORDERED: LACTATED RINGERS 1,000 ML IV SCH (10:00)
[2023-08-28 10:22] VITALS: BP 131/94; O2SAT 95
--- NOTE | 2023-08-28 10:41 | ANESTHESIA POST OP EVALUATION ---
Anesthesia Post Eval - Post Anesthesia Eval Vitals: Last Vital Signs Temp 36.2 C L 08/28/23 10:10 Pulse 67 08/28/23 10:10 Resp 16 08/28/23 10:10 BP 131/94 H 08/28/23 10:10 Pulse Ox 95 08/28/23 10:10 O2 Flow Rate CV Function Including HR & BP: Stable Pain Control: Satisfactory Nausea & Vomiting: Negative Mental Status: Baseline Respiratory Status: Airway Patent Hydration Status: Satisfactory Anesthesia Complications: None
== END 2023-08-28 07:31 | disposition home or self-care (01) ==
LOC: SDS 07:30
PROVIDERS: ATTEND Obstetrics & Gynecology
PROC: 0UB98ZZ Excision of Uterus, Via Natural or Artificial Opening Endoscopic (ICD-10-PCS; principal; 2023-08-28 08:30)
DX: N95.0 Postmenopausal bleeding (principal); R93.89 Abnormal findings on diagnostic imaging of other specified body structures; N84.0 Polyp of corpus uteri; Z79.810 Long term (current) use of selective estrogen receptor modulators (SERMs); Z79.02 Long term (current) use of antithrombotics/antiplatelets
CPT/HCPCS: 36415; 58558; 85025; J7120

== ENCOUNTER 2023-09-06 10:52 | Outpatient (CLI) | payer MEDICARE, OTHER ==
--- NOTE | 2023-09-07 09:05 | Mammography Report ---
BILATERAL DIGITAL DIAGNOSTIC MAMMOGRAM 3D/2D: 09/06/2023 CLINICAL: Focal left breast pain. Due for bilateral exam. History of left breast cancer. Comparison is made to exams dated: 08/03/2022 mammogram, 08/01/2021 mammogram - [facility], mammogram, and 03/17/2020 mammogram - [facility]. There are scattered areas of fibroglandular density in both breasts (category b / 25%-50% glandular t issue). The left breast has post-operative findings. No significant masses, calcifications, or other findings are seen in either breast. IMPRESSION: INCOMPLETE: NEEDS ADDITIONAL IMAGING EVALUATION There is no abnormality seen in the left breast to correspond with the area of clinical concern and p ain indicated by square marker at 6 o'clock in the middle depth, however, ultrasound is recommended f or further evaluation and is scheduled to immediately follow this examination. No abnormalities noted in the area of left axilla to correspond to clinical sensation of tugging. An ultrasound is recommended for further evaluation and is scheduled to immediately follow this examina tion. This exam was interpreted at Station ID: [id number]. NOTE: For mammograms, a report in lay terms will be sent to the patient. Approximately 15% of breast malignancies will not be visualized mammographically. In the management of a palpable breast mass, a negative mammogram must not discourage biopsy of a clinically suspicious lesion. Electronically Signed By: Herson Starr M.D. aty/:09/06/2023 12:02:59 copy to: KRYSTIN SUNG copy to: GUCCI SHULTZ BI-RADS Category 0: Incomplete 3340F PARENCHYMAL PATTERN: (A) - The breast(s) demonstrate(s) scattered fibroglandular densities. BI-RADS CATEGORY: (0) - 0 Ultrasound [id number] Immediate follow-up LATERALITY: (L)
--- NOTE | 2023-09-07 09:05 | Ultrasound Report ---
LIMITED ULTRASOUND OF LEFT BREAST AND AXILLA: 09/06/2023 CLINICAL: Focal left breast pain. Comparison is made to exams dated: 09/06/2023 mammogram - [facility], 08/03/2022 mamm ogram, 08/01/2021 mammogram - [facility], 12/20/2020 mammogram, 03/17/2020 mammogram, and 05/13/2019 l ocalization - [facility]. Real-time ultrasound of the left breast 6 o'clock, and axilla regions was performed. Silva scale erin ges of the real-time examination were reviewed. No significant abnormalities were seen sonographically in the left breast or the left axilla. IMPRESSION: NEGATIVE There is no sonographic evidence of malignancy. There is no abnormality seen in the left breast or in the left axilla to correspond with the area of clinical concern and pain at 6 o'clock and in the left axilla, however, recommend clinical follow up for persistent or worsening symptoms, or development of any clinically suspicious findings. A 1 year screening mammogram is recommended. Findings and recommendations were conveyed to the patient during today's evaluation. This exam was interpreted at Station ID: [id number]. Electronically Signed By: Herson Starr M.D. aty/:09/06/2023 12:04:38 copy to: KRYSTIN SUNG copy to: GUCCI DOVER Ultrasound BI-RADS: 1 Negative BI-RADS CATEGORY: (1) - 1 RECOMMENDATION: (ANNUAL) - Recommend routine annual screening mammography. [id number] 1 year screening LATERALITY: (B)
== END 2023-09-06 10:53 | disposition home or self-care (01) ==
LOC: DI 10:52
PROVIDERS: ATTEND Surgery
DX: C50.412 Malignant neoplasm of upper-outer quadrant of left female breast (principal); R92.323 Mammographic fibroglandular density, bilateral breasts